=== PATIENT | female | born 1935 | race Caucasian/White ===

== ENCOUNTER 2020-10-03 09:59 | Emergency (ER) | payer OTHER ==
[~2020-10-03] VITALS: Ht 149.9 cm; Wt 73.5 kg
[~2020-10-03 09:59] MED LIST: AVAPRO150 MG PO; GLUCOPHAGE XR500 MG PO; GLUMETZA1000 MG PO; XARELTO15 MG PO
[2020-10-03] MEDS ORDERED: KETO10TA2 PO (15:09)
== END 2020-10-03 15:11 | disposition home or self-care (01) ==
LOC: ER 09:59
DX: S02.2XXA Fracture of nasal bones, initial encounter for closed fracture (principal); S60.212A Contusion of left wrist, initial encounter; W18.09XA Striking against other object with subsequent fall, initial encounter; Y93.89 Activity, other specified; Y92.098 Other place in other non-institutional residence as the place of occurrence of the external cause; Y99.8 Other external cause status

== ENCOUNTER 2025-01-23 12:29 | Inpatient (IN) | payer OTHER ==
[~2025-01-23] VITALS: Ht 152.4 cm; Wt 67.6 kg
[~2025-01-23 12:29] MED LIST changes: +KETO10TA2 PO
[2025-01-23] MEDS ORDERED: PREVACID30 MG PO (12:44)
--- NOTE | 2025-01-23 12:50 | NUR ---
SE RECIBE PTE ALERTA Y ORIENTADA X3. PTE REFIERE QUE LE NOTIFICARON DEL LABORATORIO QUE TENIA HEMOGLOBINA BAJA. PTE NO PRESENTA NINGUN RESULTADO DE LABORATORIO O SINTOMA DE ANEMIA. SE MIDEN S/V Y SE UBICA.
--- NOTE | 2025-01-23 14:21 | NUR ---
SE JERRY MUESTRAS DE LAB POR ORDEN MEDICA
[2025-01-23 15:17] LABS: MEAN CORPUSCULAR HGB CONC 30.3 g/dl (32.0-36.0); PLATELET COUNT 288 K/uL (150-450); RED BLOOD COUNT 3.15 M/uL (4.00-6.00)
[2025-01-23 15:18] LABS: MEAN CORPUSCULAR HEMOGLOBIN 20.6 pg (27.00-32.0); RED CELL DISTRIBUTION WIDTH 18.2 % (11.5-14.5)
[2025-01-23 15:19] LABS: HEMATOCRIT 21.5 % (36.0-45.00); MEAN CELL VOLUME 68.1 fL (80.00-100.00)
[2025-01-23 15:21] LABS: HEMOGLOBIN 6.5 g/dL (12.0-15.00)
[2025-01-23 15:36] LABS: ALBUMIN 3.7 gm/dL (3.4-5.0); BILIRUBIN TOTAL 0.26 mg/dL (0.3-1.2); CALCIUM 9.1 mg/dL (8.5-10.1); CREATININE SERUM 1.3 mg/dL (0.55-1.02); GFR 38.66; GLOBULINA 3.9 G/DL (2.4-3.5); POTASSIUM 5.05 mEq/L (3.5-5.1); TOTAL PROTEIN 7.6 gm/dL (6.4-8.2)
[2025-01-23 20:19] VITALS: BP 160/70; O2SAT 96
[2025-01-23 21:56] VITALS: BP 150/81; O2SAT 100
[2025-01-24 01:55] VITALS: BP 121/68; O2SAT 97
[2025-01-24 09:01] VITALS: BP 131/68
[2025-01-24 09:18] LABS: ob NEGATIVE (NEGATIVE)
[2025-01-24] MEDS ORDERED: IRBESARTAN 75 MG TABLET PO SCH (09:47)
[2025-01-24 17:46] VITALS: BP 157/83; O2SAT 98
[2025-01-25 00:39] VITALS: BP 132/74; O2SAT 98
[2025-01-25 08:08] VITALS: BP 152/69
[2025-01-25 10:01] LABS: HEMATOCRIT 32.4 % (36.0-45.00); MEAN CELL VOLUME 74.6 fL (80.00-100.00); PLATELET COUNT 247 K/uL (150-450); RED BLOOD COUNT 4.34 M/uL (4.00-6.00); RED CELL DISTRIBUTION WIDTH 21.8 % (11.5-14.5)
[2025-01-25 17:02] VITALS: BP 115/70; O2SAT 100
== END 2025-01-25 18:20 | disposition home or self-care (01) | DRG 812 ==
LOC: ER 12:32 → MEDI 19:15
PROVIDERS: ADMIT Internal Medicine; ATTEND Internal Medicine
PROC: 30233N1 Transfusion of Nonautologous Red Blood Cells into Peripheral Vein, Percutaneous Approach (ICD-10-PCS; principal; 2025-01-24)
DX: D64.9 Anemia, unspecified (principal)